=== PATIENT | male | born 1990 | race Caucasian/White ===

== ENCOUNTER 2019-07-17 11:49 | Emergency (ER) | payer MEDICAID, OTHER ==
[~2019-07-17] VITALS: Ht 170.2 cm; Wt 80.7 kg
[~2019-07-17 11:49] MED LIST: ACET-8386 PO; SULF1TAB12 PO
[2019-07-17 12:02] VITALS: BP 108/70
--- NOTE | 2019-07-17 12:32 | NUR ---
DR. CHAN AT BEDSIDE EVALUATING PATIENT.
[2019-07-17] MEDS ORDERED: LIDOCAINE 2% 1000 MG/50 ML VIAL INJ ONE (12:40)
[2019-07-17] MEDS ORDERED: BACITRACIN OINT 500 UNITS/GM PKT TP ONE (13:20)
--- NOTE | 2019-07-17 13:24 | NUR ---
PT ARRIVED TO ED C/O right thumb lac x last night. SOME BLEEDING NOTED. CMS INTACT. VS STABLE. A &O X 4. NO OBIVOUS DEFOMRITY NOTED ON EXTREM. PT STAES, "I CUT MY THUMB WHEN I WAS PICKING UP GLASS AT 2AM." NO MPH. NKA.
[2019-07-17 13:33] VITALS: BP 108/70
--- NOTE | 2019-07-17 13:34 | NUR ---
Note undone in EDM - 07/17/19 at 1334 by MEDRI PT ARRIVED TO ED C/O SOB, COUGH X 6 DAYS. LUNG SOUNDS ROCHI AND WHEEZING THOROUGHOUT. PRODUCTIVE AND MOIST COUGH. ON 2L NC. VS STABLE. USE OF ACCESSORY MUSCLES. PT RATES PAIN LEVEL /10 AND DESCRIBES IT SHARP CONSTANT PAIN. A&O X 4. ALLERIGES: PENICLLIN, AMPICILLIN. PMH: COPD, ASTHMA, DM, GERD
== END 2019-07-17 13:34 | disposition home or self-care (01) ==
LOC: MED 11:49
DX: S61.011A Laceration without foreign body of right thumb without damage to nail, initial encounter (principal); Z79.2 Long term (current) use of antibiotics; Z79.891 Long term (current) use of opiate analgesic; W25.XXXA Contact with sharp glass, initial encounter; Y93.89 Activity, other specified; Y92.89 Other specified places as the place of occurrence of the external cause; Y99.8 Other external cause status
CPT/HCPCS: 12001; 99283; J2001

== ENCOUNTER 2019-07-24 16:41 | Emergency (ER) | payer OTHER ==
[~2019-07-24] VITALS: Ht 170.2 cm; Wt 75.7 kg
[2019-07-24 16:49] VITALS: BP 115/90
[2019-07-24] MEDS ORDERED: LIDOCAINE 2% 1000 MG/50 ML VIAL INJ ONE (17:55)
[2019-07-24] MEDS ORDERED: LIDOCAINE/EPI 1% 1:100000 20 ML VIAL INJ ONE (18:00)
[2019-07-24 18:47] VITALS: BP 115/85
== END 2019-07-24 18:46 | disposition home or self-care (01) ==
LOC: MED 16:41
DX: S01.511A Laceration without foreign body of lip, initial encounter (principal); Z79.899 Other long term (current) drug therapy; W11.XXXA Fall on and from ladder, initial encounter; Y93.89 Activity, other specified; Y92.89 Other specified places as the place of occurrence of the external cause; Y99.8 Other external cause status
CPT/HCPCS: 12011; 99283; J2001